=== PATIENT | female | born 1980 | race Caucasian/White ===

== ENCOUNTER 2018-01-07 23:34 | Outpatient (CLI) | payer BC ==
[2018-01-08 01:35] LABS: ADD UMIC YES; UR ASCORBIC ACID NEGATIVE (NEGATIVE); UR BILIRUBIN (Dip) NEGATIVE (NEGATIVE); UR BLOOD (Dip) 1+ mg/dL (NEGATIVE); UR CALCIUM OXALATE CRYSTAL MODERATE /HPF (NONE SEEN); UR CLARITY SLIGHTLY CLOUDY (CLEAR); UR COLOR YELLOW (YELLOW); UR GLUCOSE (Dip) NEGATIVE (NEGATIVE); UR KETONES (Dip) NEGATIVE (NEGATIVE); UR LEUKOCYTE ESTERASE (Dip) TRACE Leu/ul (NEGATIVE); UR MUCUS FEW /HPF (NONE SEEN); UR NITRITE (Dip) NEGATIVE (NEGATIVE); UR RBC 1 /HPF (0-5); UR SPECIFIC GRAVITY (Dip) 1.017 (1.003-1.030); UR SQUAMOUS EPITHELIAL CELL FEW /HPF (FEW); UR TOTAL PROTEIN (Dip) NEGATIVE (NEGATIVE); UR UROBILINOGEN (Dip) NEGATIVE (NEGATIVE); UR WBC 1 /HPF (0-5)
== END 2018-01-08 02:05 | disposition home or self-care (01) ==
LOC: OBT 23:34 → L-D 23:35
DX: O99.512 Diseases of the respiratory system complicating pregnancy, second trimester (principal); J40 Bronchitis, not specified as acute or chronic; R09.81 Nasal congestion; O09.522 Supervision of elderly multigravida, second trimester; Z3A.26 26 weeks gestation of pregnancy
CPT/HCPCS: 76818; 81001

== ENCOUNTER 2018-01-14 19:53 | Outpatient (CLI) | payer BC ==
[2018-01-14 21:27] LABS: ADD UMIC YES; UR ASCORBIC ACID NEGATIVE (NEGATIVE); UR BILIRUBIN (Dip) NEGATIVE (NEGATIVE); UR BLOOD (Dip) 1+ mg/dL (NEGATIVE); UR CLARITY CLEAR (CLEAR); UR COLOR YELLOW (YELLOW); UR GLUCOSE (Dip) NEGATIVE (NEGATIVE); UR KETONES (Dip) 1+ mg/dL (NEGATIVE); UR LEUKOCYTE ESTERASE (Dip) NEGATIVE Leu/ul (NEGATIVE); UR MUCUS FEW /HPF (NONE SEEN); UR NITRITE (Dip) NEGATIVE (NEGATIVE); UR RBC 1 /HPF (0-5); UR SPECIFIC GRAVITY (Dip) 1.008 (1.003-1.030); UR TOTAL PROTEIN (Dip) NEGATIVE (NEGATIVE); UR UROBILINOGEN (Dip) NEGATIVE (NEGATIVE); UR WBC 1 /HPF (0-5)
== END 2018-01-14 23:55 | disposition home or self-care (01) ==
LOC: OBT 19:53 → L-D 19:54 → OBT 23:55 → L-D 19:53
DX: O26.892 Other specified pregnancy related conditions, second trimester (principal); Z3A.27 27 weeks gestation of pregnancy; R10.2 Pelvic and perineal pain
CPT/HCPCS: 76818; 81001

== ENCOUNTER 2018-03-14 23:07 | Outpatient (CLI) | payer BC ==
[2018-03-15 01:33] LABS: ADD UMIC NO; UR ASCORBIC ACID NEGATIVE (NEGATIVE); UR BILIRUBIN (Dip) NEGATIVE (NEGATIVE); UR BLOOD (Dip) NEGATIVE (NEGATIVE); UR CLARITY CLEAR (CLEAR); UR COLOR YELLOW (YELLOW); UR GLUCOSE (Dip) 3+ mg/dL (NEGATIVE); UR KETONES (Dip) NEGATIVE (NEGATIVE); UR LEUKOCYTE ESTERASE (Dip) NEGATIVE Leu/ul (NEGATIVE); UR NITRITE (Dip) NEGATIVE (NEGATIVE); UR SPECIFIC GRAVITY (Dip) 1.012 (1.003-1.030); UR TOTAL PROTEIN (Dip) NEGATIVE (NEGATIVE); UR UROBILINOGEN (Dip) 1+ mg/dL (NEGATIVE)
[2018-03-15] MEDS: LACTATED RINGER'S 1,000 ML IV ×2 (02:30→04:02)
[2018-03-15] MEDS: TERBUTALINE 1 MG/ML INJ SC (02:31)
== END 2018-03-15 06:35 | disposition home or self-care (01) ==
LOC: OBT 23:07 → L-D 23:07 → OBT 03-15 06:35
DX: O47.03 False labor before 37 completed weeks of gestation, third trimester (principal); O09.523 Supervision of elderly multigravida, third trimester; Z3A.36 36 weeks gestation of pregnancy
CPT/HCPCS: 36415; 76818; 81003; 96360; 96361; 96372

== ENCOUNTER 2018-03-15 21:03 | Outpatient (CLI) | payer BC | END 2018-03-16 01:32 | disposition home or self-care (01) | LOC: OBT 03-16 01:32 → L-D 21:04 | DX: O62.9 Abnormality of forces of labor, unspecified (principal); O09.523 Supervision of elderly multigravida, third trimester; Z3A.36 36 weeks gestation of pregnancy | CPT/HCPCS: G0463 ==

== ENCOUNTER 2018-03-18 07:18 | Inpatient (IN) | payer BC ==
[2018-03-18] MEDS ORDERED: LIDOCAINE 1% (MPF) 30 ML INJ INJ (08:00)
[2018-03-18] MEDS ORDERED: CARBOPROST 250 MCG INJ IM ×2 (08:00→20:30)
[2018-03-18] MEDS ORDERED: BUTORPHANOL 2 MG INJ IV (08:00)
[2018-03-18] MEDS ORDERED: BUTORPHANOL 1 MG INJ IV (08:00)
[2018-03-18] MEDS ORDERED: METHYLERGONOVINE 0.2 MG INJ IM ×2 (08:00→20:30)
[2018-03-18] MEDS ORDERED: OXYTOCIN 30 UNITS/LR 500 ML IV ×2 (08:00→20:30)
[2018-03-18] MEDS ORDERED: MISOPROSTOL 200 MCG TAB PR ×2 (08:00→20:30)
[2018-03-18] MEDS: LACTATED RINGER'S 1,000 ML IV* ×2 (08:46→17:39)
[2018-03-18 09:01] LABS: ADD MAN DIFF? NO
[2018-03-18] MEDS: AMPICILLIN 2 GM/NS (PMX) 100 ML IV (09:02)
[2018-03-18 09:05] LABS: BASOPHILS % 0.2 % (0.0-2.0); EOSINOPHILS % 0.5 % (0.0-7.0); HEMATOCRIT 35.2 % (37.0-47.0); HEMOGLOBIN 11.7 g/dl (12.0-16.0); LYMPHOCYTES # 1.7 10^3/ul (0.8-2.9); LYMPHOCYTES % 27.5 % (15.0-51.0); MEAN CORPUSCULAR HEMOGLOBIN 28.7 pg (29.0-33.0); MEAN CORPUSCULAR HGB CONC 33.2 g/dl (32.0-37.0); MEAN CORPUSCULAR VOLUME 86.3 fl (82.0-101.0); MONOCYTE # 0.6 10^3/ul (0.3-0.9); MONOCYTES % 9.3 % (0.0-11.0); NEUTROPHIL # 3.7 10^3/ul (1.6-7.5); NEUTROPHILS % 61.8 % (39.0-77.0); PLATELET COUNT 161 10^3/UL (140-415); RED BLOOD COUNT 4.08 10^6/ul (4.20-5.40); RED CELL DISTRIBUTION WIDTH 13.9 % (11.5-14.5)
[2018-03-18 09:30] LABS: INR 0.96; PARTIAL THROMBOPLASTIN TIME 24.2 Sec (25.0-35.0); PROTIME 12.9 Sec (11.9-14.9)
[2018-03-18] MEDS ORDERED: FENTAnyl 2MCG/ML-ROPIV 0.2% 100 ML (10:53)
[2018-03-18] MEDS: LACTATED RINGER'S 1,000 ML IV (10:53)
[2018-03-18] MEDS: OXYTOCIN 30 UNITS/LR 500 ML IV ×2 (10:55→19:33)
[2018-03-18] MEDS ORDERED: FENTAnyl 2MCG/ML-ROPIV 0.2% 100 ML BAG EPI (11:30)
[2018-03-18] MEDS ORDERED: ONDANSETRON 4 MG INJ IV (11:30)
[2018-03-18] MEDS ORDERED: NALOXONE (0.4 MG/ML) INJ IV (11:30)
[2018-03-18] MEDS: AMPICILLIN 1 GM/NS (PMX) 50 ML IV ×2 (12:54→16:48)
[2018-03-18] MEDS: DIPHENHYDRAMINE 50 MG INJ IV (15:23)
[2018-03-18] MEDS ORDERED: ZOLPIDEM 5 MG TAB PO (20:30)
[2018-03-18 20:38] LABS: RAPID PLASMA REAGIN NONREACTIVE (NR)
[2018-03-18] MEDS: OXYCODONE/ASPIRIN (4.88/325) TAB PO (20:40)
[2018-03-18] MEDS: BENZOCAINE 20% 56 ML SPRAY TOP (21:33)
[2018-03-18] MEDS: SENNA/DOCUSATE NA (8.6MG/50MG) TAB PO (21:33)
[2018-03-18] MEDS: LANOLIN 7 GM TUBE TOP (21:33)
[2018-03-18] MEDS: WITCH HAZEL/GLYCERIN PAD PR (21:33)
[2018-03-19] MEDS: IBUPROFEN 600 MG TAB PO ×5 (00:04→23:47)
[2018-03-19] MEDS: OXYCODONE/ASPIRIN (4.88/325) TAB PO ×3 (07:48→21:22)
[2018-03-19 09:38] LABS: ADD MAN DIFF? NO
[2018-03-19 09:43] LABS: BASOPHILS % 0.2 % (0.0-2.0); EOSINOPHILS % 0.5 % (0.0-7.0); HEMATOCRIT 34.6 % (37.0-47.0); HEMOGLOBIN 11.3 g/dl (12.0-16.0); LYMPHOCYTES # 1.7 10^3/ul (0.8-2.9); LYMPHOCYTES % 19.3 % (15.0-51.0); MEAN CORPUSCULAR HEMOGLOBIN 28.5 pg (29.0-33.0); MEAN CORPUSCULAR HGB CONC 32.7 g/dl (32.0-37.0); MEAN CORPUSCULAR VOLUME 87.2 fl (82.0-101.0); MEAN PLATELET VOLUME 11.2 fl (7.4-10.4); MONOCYTE # 0.7 10^3/ul (0.3-0.9); MONOCYTES % 7.9 % (0.0-11.0); NEUTROPHIL # 6.1 10^3/ul (1.6-7.5); NEUTROPHILS % 71.5 % (39.0-77.0); PLATELET COUNT 147 10^3/UL (140-415); RED BLOOD COUNT 3.97 10^6/ul (4.20-5.40); RED CELL DISTRIBUTION WIDTH 13.9 % (11.5-14.5)
[2018-03-19 09:43] LABS: WHITE BLOOD COUNT 8.5 10^3/ul (4.8-10.8)
[2018-03-19] MEDS: SENNA/DOCUSATE NA (8.6MG/50MG) TAB PO ×2 (12:31→21:01)
[2018-03-19] MEDS ORDERED: ACETAMINOPHEN 325 MG TAB PO (13:00)
[2018-03-20] MEDS: OXYCODONE/ASPIRIN (4.88/325) TAB PO ×2 (04:15→08:38)
[2018-03-20] MEDS: IBUPROFEN 600 MG TAB PO (05:52)
[2018-03-20] MEDS: SENNA/DOCUSATE NA (8.6MG/50MG) TAB PO (08:34)
[2018-03-20] MEDS: DIPHTH/TET/ACEL PERTUSS (ADULT) 0.5 ML VIAL IM* (09:00)
== END 2018-03-20 11:45 | disposition home or self-care (01) | DRG 775 ==
LOC: OBT 07:18 → L-D 07:18 → OBT 07:50 → L-D 07:50 → PP1 21:12
PROVIDERS: Obstetrics & Gynecology
PROC: 10E0XZZ Delivery of Products of Conception, External Approach (ICD-10-PCS; principal; 2018-03-18)
DX: O60.14X0 Preterm labor third trimester with preterm delivery third trimester, not applicable or unspecified (principal); Z3A.36 36 weeks gestation of pregnancy; Z37.0 Single live birth
CPT/HCPCS: 62319; 85025; 85610; 85730; 86592; 86850; 86900; 86901